=== PATIENT | male | born 1990 | race Caucasian/White ===

== ENCOUNTER 2018-12-05 19:19 | Emergency (ER) | payer OTHER ==
[2018-12-05] MEDS: HYDROCODONE/APAP (10/325) TAB PO (21:10)
== END 2018-12-05 23:49 ==
LOC: FTE 19:19 → E/R 23:49
DX: S62.512A Displaced fracture of proximal phalanx of left thumb, initial encounter for closed fracture (principal); S62.351A Nondisplaced fracture of shaft of second metacarpal bone, left hand, initial encounter for closed fracture; Y08.89XA Assault by other specified means, initial encounter
CPT/HCPCS: 29125; 73110-LT; 73130-LT; 99283-25